=== PATIENT | male | born 1990 | race Two or more races ===

== ENCOUNTER 2020-02-17 08:10 | Emergency (ER) | payer MEDICAID ==
[~2020-02-17] VITALS: Ht 175.3 cm; Wt 74.8 kg
--- NOTE | 2020-02-17 08:22 | NUR ---
ED Nurse Note: Pt brought by ambulance from [place] for vomiting x3days. He states he has vomited over 10x in past few days adn can't hold down food or water. Pt states he has done crystal meth recently. Pt is alert and orientedx3, slurred speech, drowsy.
[2020-02-17] MEDS ORDERED: Capsaicin 0.075% Cream TOPIC ONE (08:30)
--- NOTE | 2020-02-17 08:30 | NUR ---
ED Nurse Note: Pt urine sample sent to lab.
[2020-02-17 08:55] VITALS: BP 114/71
[2020-02-17 09:01] LABS: HEMATOCRIT 46.6 % (42.0-52.0); HEMOGLOBIN 16.2 G/DL (14.2-18.0); MEAN CORPUSCULAR VOLUME 88 FL (80-99); PLATELET COUNT 338 K/UL (150-450); RED BLOOD COUNT 5.31 M/UL (4.70-6.10); RED CELL DISTRIBUTION WIDTH 11.2 % (11.6-14.8); WHITE BLOOD COUNT 16.3 K/UL (4.8-10.8)
[2020-02-17 09:12] LABS: ANION GAP 10 mmol/L (5-15); BLOOD UREA NITROGEN 26 mg/dL (7-18); CALCIUM 8.8 MG/DL (8.5-10.1); CARBON DIOXIDE 29 MMOL/L (21-32); CHLORIDE 104 MMOL/L (98-107); CREATININE 0.8 MG/DL (0.55-1.30); POTASSIUM 4.1 MMOL/L (3.5-5.1); SODIUM 143 MMOL/L (136-145)
[2020-02-17 09:19] LABS: ALANINE AMINOTRANSFERASE 67 U/L (12-78); ALBUMIN 3.6 G/DL (3.4-5.0); ALBUMIN/GLOBULIN RATIO 0.9 (1.0-2.7); ALKALINE PHOSPHATASE 81 U/L (46-116); ASPARTATE AMINO TRANSFERASE 63 U/L (15-37); BILIRUBIN,TOTAL 0.8 MG/DL (0.2-1.0)
[2020-02-17 10:15] LABS: APPEARANCE,URINE CLEAR; BILIRUBIN, URINE NEGATIVE (NEGATIVE); COLOR,URINE PALE YELLOW; GLUCOSE, URINE (UA) NEGATIVE (NEGATIVE); KETONES,URINE NEGATIVE (NEGATIVE); LEUKOCYTE ESTERASE ,URINE NEGATIVE (NEGATIVE); NITRITE,URINE NEGATIVE (NEGATIVE); PH,URINE 8 (4.5-8.0); PROTEIN,URINE NEGATIVE (NEGATIVE); UROBILINOGEN,URINE NORMAL MG/DL (0.0-1.0)
--- NOTE | 2020-02-17 10:30 | NUR ---
ED Nurse Note: Pt alert and orientedx4. rambling, restless.
[2020-02-17 10:41] VITALS: BP 119/78
[2020-02-17 12:30] VITALS: BP 123/76
--- NOTE | 2020-02-17 12:30 | NUR ---
ED Nurse Note: Pt is resting in bed, pt more calm and cooperative.
--- NOTE | 2020-02-17 13:40 | Emergency Room Report ---
History of Present Illness General Chief Complaint: Vomiting Source: Patient Present Illness HPI This patient states that he has had nausea and vomiting since early this morning. He denies abdominal pain. He denies cough or congestion. He denies fever or chills. He states he is unable to eat or drink anything because he will immediately vomit. He denies diarrhea. He admits to heavy marijuana use daily. He also uses amphetamines. He denies headache or neck pain. He has no other complaints. Allergies: Coded Allergies: No Known Allergies (Unverified , 02/17/20) COVID-19 Screening Contact w/high risk pt: No Recent Travel to affected area: No Experienced COVID-19 symptoms?: No Patient History Past Medical History: none, see triage record Social History: Reports: drug use; Denies: smoking, alcohol use Reviewed Nursing Documentation: PMH: Agreed; PSxH: Agreed Nursing Documentation-PMH Past Medical History: No Stated History Review of Systems All Other Systems: negative except mentioned in HPI Physical Exam Vital Signs Date Time Temp Pulse Resp B/P (MAP) Pulse Ox O2 Delivery O2 Flow Rate FiO2 02/17/20 08:11 98.2 88 19 116/72 (87) 100 Room Air 02/17/20 08:55 99 Sp02 EP Interpretation: reviewed, normal General Appearance: no apparent distress, alert, GCS 15, non-toxic Head: normocephalic, atraumatic Eyes: bilateral eye normal inspection, bilateral eye PERRL ENT: hearing grossly normal, normal pharynx, no angioedema, normal voice Neck: full range of motion, supple/symm/no masses Respiratory: chest non-tender, lungs clear, normal breath sounds, no respiratory distress, no retraction, no accessory muscle use, speaking full sentences Cardiovascular #1: regular rate, rhythm, no edema Gastrointestinal: normal bowel sounds, non tender, soft, non-distended, no guarding, no rebound Rectal: deferred Musculoskeletal: back normal, normal range of motion, gait/station normal, non- tender Neurologic: alert, motor strength/tone normal, oriented x3, sensory intact, responsive, speech normal Psychiatric: judgement/insight normal, memory normal, mood/affect normal, no suicidal/homicidal ideation Skin: no rash Medical Decision Making Diagnostic Impression: Primary Impression: Vomiting ER Course This patient has a clinical presentation consistent with gastroenteritis/ cannabis hyperemesis syndrome. The patient's abdominal exam was benign. I do not suspect cholecystitis, pancreatitis, appendicitis or diverticulitis based on history and physical and laboratory workup. This is likely viral in etiology or more likely related to heavy cannabis use. The patient is nontoxic and nonsurgical at this time. The patient was given return precautions and followup instructions. Laboratory Tests Test 02/17/20 08:42 02/17/20 10:00 White Blood Count 16.3 K/UL (4.8-10.8) H Red Blood Count 5.31 M/UL (4.70-6.10) Hemoglobin 16.2 G/DL (14.2-18.0) Hematocrit 46.6 % (42.0-52.0) Mean Corpuscular Volume 88 FL (80-99) Mean Corpuscular Hemoglobin 30.6 PG (27.0-31.0) Mean Corpuscular Hemoglobin Concent 34.9 G/DL (32.0-36.0) Red Cell Distribution Width 11.2 % (11.6-14.8) L Platelet Count 338 K/UL (150-450) Mean Platelet Volume 4.9 FL (6.5-10.1) L Neutrophils (%) (Auto) % (45.0-75.0) Lymphocytes (%) (Auto) % (20.0-45.0) Monocytes (%) (Auto) % (1.0-10.0) Eosinophils (%) (Auto) % (0.0-3.0) Basophils (%) (Auto) % (0.0-2.0) Differential Total Cells Counted 100 Neutrophils % (Manual) 94 % (45-75) H Lymphocytes % (Manual) 3 % (20-45) L Monocytes % (Manual) 3 % (1-10) Eosinophils % (Manual) 0 % (0-3) Basophils % (Manual) 0 % (0-2) Band Neutrophils 0 % (0-8) Platelet Estimate Adequate Platelet Morphology Normal Red Blood Cell Morphology Normal Sodium Level 143 MMOL/L (136-145) Potassium Level 4.1 MMOL/L (3.5-5.1) Chloride Level 104 MMOL/L (98-107) Carbon Dioxide Level 29 MMOL/L (21-32) Anion Gap 10 mmol/L (5-15) Blood Urea Nitrogen 26 mg/dL (7-18) H Creatinine 0.8 MG/DL (0.55-1.30) Estimated Glomerular Filtration Rate > 60 mL/min (>60) Glucose Level 113 MG/DL (74-106) H Calcium Level 8.8 MG/DL (8.5-10.1) Total Bilirubin 0.8 MG/DL (0.2-1.0) Aspartate Amino Transferase (AST) 63 U/L (15-37) H Alanine Aminotransferase (ALT) 67 U/L (12-78) Alkaline Phosphatase 81 U/L (46-116) Total Protein 7.7 G/DL (6.4-8.2) Albumin 3.6 G/DL (3.4-5.0) Globulin 4.1 g/dL Albumin/Globulin Ratio 0.9 (1.0-2.7) L Lipase 261 U/L (73-393) Urine Color Pale yellow Urine Appearance Clear Urine pH 8 (4.5-8.0) Urine Specific [place] 1.015 (1.005-1.035) Urine Protein Negative (NEGATIVE) Urine Glucose (UA) Negative (NEGATIVE) Urine Ketones Negative (NEGATIVE) Urine Blood Negative (NEGATIVE) Urine Nitrite Negative (NEGATIVE) Urine Bilirubin Negative (NEGATIVE) Urine Urobilinogen Normal MG/DL (0.0-1.0) Urine Leukocyte Esterase Negative (NEGATIVE) Urine Opiates Screen Negative (NEGATIVE) Urine Barbiturates Screen Negative (NEGATIVE) Phencyclidine (PCP) Screen Negative (NEGATIVE) Urine Amphetamines Screen Positive (NEGATIVE) H Urine Benzodiazepines Screen Negative (NEGATIVE) Urine Cocaine Screen Negative (NEGATIVE) Urine Marijuana (THC) Screen Positive (NEGATIVE) H Last Vital Signs Date Time Temp Pulse Resp B/P (MAP) Pulse Ox O2 Delivery O2 Flow Rate FiO2 02/17/20 10:41 98.2 74 20 119/78 100 Room Air 02/17/20 08:55 99 Status: improved Disposition: HOME, SELF-CARE Condition: Improved Referrals: NON PHYSICIAN (PCP) Patient Instructions: Nausea and Vomiting, Adult Deb Hess DO Feb 17, 2020 13:40
--- NOTE | 2020-02-17 14:00 | NUR ---
ED Nurse Note: Report received from ELIAS Patel. pt in bed resting, awake. no acute distress is noted.
[2020-02-17 14:06] VITALS: BP 105/84
--- NOTE | 2020-02-17 14:06 | NUR ---
ER DISCHARGE NOTE: Patient is cleared to be discharged per ERMD, pt is aox4, on room air, with stable vital signs. pt was given dc and prescription instructions, pt was able to verbalize understanding, pt id band and iv site removed without complications. pt is able to ambulate with steady gait. pt took all belongings.
== END 2020-02-17 14:06 | disposition home or self-care (01) ==
LOC: EDBD 08:10 → EMR 08:36
DX: R11.10 Vomiting, unspecified (principal); F12.90 Cannabis use, unspecified, uncomplicated
CPT/HCPCS: 36415; 80053; 80307; 81003; 83690; 85007; 85025; 96361; 96374; 96375; J2405; J7030; S0028; Z7502; 99284